=== PATIENT | female | born 1935 | race Caucasian/White ===

== ENCOUNTER 2021-03-02 08:16 | Observation (INO) ==
[2021-03-02 08:40] LABS: Basophils # 0.1 10*3/uL (0.0-0.2); Basophils % 0.7 % (0.0-0.8); Eosinophils # 0.2 10*3/uL (0.0-0.87); Eosinophils % 2.1 % (0.00-10.9); Hematocrit 33.7 VOL% (35.7-47.0); Hemoglobin 10.8 GM/DL (12.0-16.0); Immature Granulocytes % 1.4 %; Immature Granulocytes Absolute 0.12 #; Lymphocytes # 1.6 10*3/uL (1.4-4.0); Lymphocytes % 18.9 % (21.3-54.2); Mean Corpuscular Volume 98.8 FL (87-102); Mean Platelet Volume 9.3 FL (9.6-12.0); Monocytes % 7.6 % (1.7-12.7); Neutrophils % 69.3 % (38.7-73.9); Platelet Count 199 T/CUMM (130-400); Red Blood Count 3.41 MC/CUMM (3.8-5.5); White Blood Count 8.7 T/CUMM (4-12)
[2021-03-02] MEDS ORDERED: FUROSEMIDE 40 MG/4 ML VIAL IV STA (08:43)
[2021-03-02 09:10] LABS: Albumin 3.1 G/DL (3.4-5.0); Bilirubin,Total 0.6 MG/DL (0.20-1.00); Calcium 9.2 MG/DL (8.5-10.1); Osmolality,Calculated 276.8 MOS/KG (273-304); Potassium 3.6 MMOL/L (3.5-5.1); Total Protein 7.7 G/DL (6.4-8.2)
[2021-03-02] MEDS ORDERED: diphenhydrAMINE 50 MG/1 ML VIAL IV STA (10:05)
[2021-03-02] MEDS ORDERED: methylPREDNISolone SOD SUC 125 MG/2 ML VIAL IV STA (10:05)
[2021-03-02] MEDS ORDERED: HEPARIN 5,000 UNIT/1 ML VIAL IV STA (11:13)
[2021-03-02] MEDS ORDERED: ONDANSETRON 4 MG/2 ML VIAL IV PRN (11:28)
[2021-03-02] MEDS ORDERED: HEPARIN DRIP 500 ML IV SCH (11:30)
[2021-03-02 11:34] LABS: PT Patient Result 11.2 SECS (10.5-12.0); Partial Thromboplastin Time 24.9 SECS (23.9-33.8)
[2021-03-02] MEDS ORDERED: HEPARIN DRIP 25,000 UNITS/500 ML PREMIX IV SCH (12:30)
[2021-03-02] MEDS ORDERED: HEPARIN IV SCH (12:30)
[2021-03-02] MEDS: PANTOPRAZOLE 40 MG TABLET PO SCH (13:29)
[2021-03-02 21:34] LABS: INR 1.1; PT Patient Result 12.1 SECS (10.5-12.0)
[2021-03-02 21:40] LABS: Partial Thromboplastin Time 120.6 SECS (23.9-33.8)
[2021-03-02] MEDS: METOPROLOL TARTRATE 50 MG TABLET PO SCH (22:50)
[2021-03-03 06:25] LABS: Basophils % 0.2 % (0.0-0.8); Hematocrit 30.1 VOL% (35.7-47.0); Hemoglobin 9.7 GM/DL (12.0-16.0); Immature Granulocytes % 1.2 %; Immature Granulocytes Absolute 0.12 #; Lymphocytes # 1.6 10*3/uL (1.4-4.0); Lymphocytes % 15.3 % (21.3-54.2); Mean Corpuscular HGB Conc 32.2 GM/DL (32-36); Mean Corpuscular Volume 98.7 FL (87-102); Mean Platelet Volume 9.4 FL (9.6-12.0); Monocytes % 5.8 % (1.7-12.7); Neutrophils % 77.5 % (38.7-73.9); Platelet Count 206 T/CUMM (130-400); Red Blood Count 3.05 MC/CUMM (3.8-5.5); White Blood Count 10.3 T/CUMM (4-12)
[2021-03-03] MEDS ORDERED: LEVOTHYROXINE 88 MCG TABLET PO SCH (06:30)
[2021-03-03 06:53] LABS: Albumin 2.7 G/DL (3.4-5.0); Bilirubin,Total 0.9 MG/DL (0.20-1.00); Calcium 9.1 MG/DL (8.5-10.1); Osmolality,Calculated 290.3 MOS/KG (273-304); Potassium 3.9 MMOL/L (3.5-5.1); Thyroid Stimulating Hormone 0.87 uIU/ml (0.358-3.74); Total Protein 6.9 G/DL (6.4-8.2)
[2021-03-03] MEDS ORDERED: SODIUM CHLORIDE 0.45% 1,000 ML IV SCH (08:00)
[2021-03-03] MEDS ORDERED: APIXABAN 5 MG TABLET PO SCH (09:00)
[2021-03-03] MEDS: PANTOPRAZOLE 40 MG TABLET PO SCH (09:02)
[2021-03-03] MEDS: METOPROLOL TARTRATE 50 MG TABLET PO SCH (09:02)
[2021-03-03 12:40] VITALS: BP 131/54
[2021-03-03] MEDS ORDERED: predniSONE 20 MG TABLET PO SCH (13:16)
[2021-03-03] MEDS ORDERED: methylPREDNISolone SOD SUC 125 MG/2 ML VIAL IV SCH (13:30)
[2021-03-03] MEDS ORDERED: cefTRIAXone 1,000 MG in SODIUM CHLORIDE 0.9% 100 ML IV SCH (13:30)
[2021-03-03] MEDS ORDERED: ATORVASTATIN 40 MG TABLET PO SCH (21:00)
== END 2021-03-03 19:00 | disposition home or self-care (01) ==
LOC: N.EDINP 08:16 → N.ED 08:16 → N.TELES 12:04
PROVIDERS: ADMIT Hospitalist; ATTEND Hospitalist